=== PATIENT | female | born 1965 | race African-American/Black ===

== ENCOUNTER 2017-07-03 09:57 | Emergency (ER) | payer OTHER ==
[~2017-07-03] VITALS: Ht 165.1 cm; Wt 75.0 kg
[~2017-07-03 09:57] MED LIST: IBUP-238 PO; LORT5TAB PO; ORPH100T PO; Z.0.NO CURRENT MEDS
[2017-07-03 09:59] VITALS: BP 122/81; PULSE 88; RESP 15; TEMP 99.5; O2SAT 98
--- NOTE | 2017-07-03 10:29 | PD ---
HPI . Chest pain Chief Complaint: Cold / Flu Symptoms Time Seen by Provider: 10:19 Travel History International Travel<30 days: No Contact w/Intl Traveler<30days: No Traveled to known affect area: No History of Present Illness HPI This patient presents with a chief complaint of chest pain associated with a cough. She rates the pain 10/10. Onset of symptoms was 3 days ago. Her symptoms have been continuous. She describes sore throat and cough. She has been taking Robitussin and Tylenol without relief. She denies any associated fever or chills. PFSH Past Medical History Medical History: Denies Significant Hx Influenza Vaccination: No ?: Not Menopausal: Yes Past Surgical History Other Surgery: Yes (hernia repair ) Social History Alcohol Use: No Tobacco Use: No Substance Use: No Allergies-Medications (Allergen,Severity, Reaction): Coded Allergies: No Known Allergies (Verified Adverse Reaction, Unknown, 07/03/17) Reported Meds & Prescriptions Reported Meds & Active Scripts Active Lortab 5/500 (Acetaminophen/Hydrocodone Bitart) 5 Mg/500 Mg Tab 1-2 Tab PO Q4- 6HPRN FOR PAIN Norflex (Orphenadrine Citrate) 100 Mg Deshawn 100 Mg PO BIDPRN Motrin (Ibuprofen) 800 Mg Tab 800 Mg PO TIDPRN FOR PAIN Reported No Current Meds (Miscellaneous Medication) Misc Review of Systems Except as stated in HPI: all other systems reviewed are Neg General / Constitutional: No: Fever, Chills HENT: Positive: Sore Throat Cardiovascular: Positive: Chest Pain or Discomfort Respiratory: Positive: Cough Physical Exam Narrative Vital Signs Date Time Temp Pulse Resp B/P (MAP) Pulse Ox O2 Delivery O2 Flow Rate FiO2 07/03/17 09:59 99.5 88 15 122/81 (95) 98 GENERAL: Awake and alert and in no acute distress. SKIN: Warm and dry. Normal color and turgor. HEAD: Normocephalic/atraumatic. EYES: Pupils are equal. Extraocular movements are intact. ENT: Oropharynx has no erythema, tonsillar enlargement or exudate. NECK: Normal range of motion. No cervical lymphadenopathy. CARDIOVASCULAR: Regular rate and rhythm. Heart sounds are normal. RESPIRATORY: Nonlabored respirations. Lungs are clear with full air movement throughout. MUSCULOSKELETAL: Atraumatic. NEUROLOGICAL: Nonfocal. PSYCHIATRIC: Appropriate mood and affect. Data Data Last Documented VS Vital Signs Date Time Temp Pulse Resp B/P (MAP) Pulse Ox O2 Delivery O2 Flow Rate FiO2 07/03/17 09:59 99.5 88 15 122/81 (95) 98 Orders Orders Ed Discharge Order (07/03/17 10:24) MDM Medical Decision Making Medical Screen Exam Complete: Yes Emergency Medical Condition: Yes Differential Diagnosis Differential diagnosis includes but is not limited to viral respiratory illness , bronchitis, pneumonia, allergies, CHF, asthma/COPD. Narrative Course Patient presents with cough associated with chest discomfort. Onset was 3 days ago. She has no concerning signs or symptoms. She is afebrile. She is not tachypneic. Her sats are good. Her lung exam is benign. Stable for discharge to home. Diagnosis Primary Impression: Upper respiratory infection Qualified Codes: J06.9 - Acute upper respiratory infection, unspecified Patient Instructions: General Instructions, Upper Respiratory Infection (ED) Departure Forms: Tests/Procedures Additional Instructions: I recommend the use of a Neti Pot. You may use a nasal spray such as Afrin for up to 3 days as needed for nasal congestion. You may take an kpja-wbs-bxdtelf antihistamine such as Zyrtec, Jessica or Claritin as needed for runny secretions. You may take pseudoephedrine as needed for congestion. You will need to sign for this at the pharmacy. You may take plain Mucinex, 1200 mg twice a day as needed for thick secretions. You may take a cough syrup such as Delsym as needed for cough. Motrin as needed for fever and body aches. Throat lozenges/sprays as needed for sore throat. Warm salt water gargles for sore throat. Hot tea with lemon and honey also helps soothe a sore throat. Disposition: 01 DISCHARGE HOME Condition: Stable Melody Lucas MD Jul 03, 2017 10:29
--- NOTE | 2017-07-04 12:06 | EKG ---
Date Performed: 07/03/2017 Time Performed: 10:54:42 PTAGE: 52 years EKG: Sinus rhythm NORMAL ECG NO PREVIOUS TRACING DOCTOR: Eric Larios Interpretating Date/Time 07/04/2017 12:05:04
== END 2017-07-03 11:16 | disposition home or self-care (01) ==
LOC: NEPD 09:57
DX: J06.9 Acute upper respiratory infection, unspecified (principal)
CPT/HCPCS: 93005; 99283